=== PATIENT | female | born 1960 | race Caucasian/White ===

== ENCOUNTER → 2019-06-26 | Outpatient (CLI) | payer OTHER ==
[2019-06-26 08:09] LABS: ABSOLUTE EOSINOPHILS 0.1 thou/uL (0.0-0.7); ABSOLUTE LYMPHOCYTES 1.2 thou/uL (0.8-5.3); ABSOLUTE MONOCYTES 0.3 thou/uL (0.0-1.2); ABSOLUTE NEUTROPHILS 2.3 thou/uL (1.6-8.1); BASOPHILS 0.7 %; EOSINOPHILS 3.4 %; HEMATOCRIT 41.6 % (37.0-47.0); HEMOGLOBIN 14.3 gm/dL (12.0-15.0); LYMPHOCYTES 30.5 %; MCH 30.5 pg (26.0-34.0); MCHC 34.5 g/dL (28.0-37.0); MCV 88.6 fL (80.0-100.0); MONOCYTES 8.2 %; MPV 7.4 fl. (7.2-11.1); NUCLEATED RBCS 0 /100WBC; PLATELET COUNT* 194 thou/uL (150-400); POLYS 57.2 %; RBC 4.69 mil/uL (4.20-5.00); RDW-CV 13.6 % (10.5-14.5); WBC 4.1 thou/uL (4.0-11.0)
[2019-06-26 09:14] LABS: ALBUMIN 3.8 g/dL (3.4-5.0); ALKALINE PHOSPHATASE 72 U/L (46-116); ANION GAP 6 mmol/L (7-16); BUN 14 mg/dL (7-18); CHLORIDE 108 mmol/L (98-107); CHOLESTEROL 210 mg/dL (<200); CO2 28 mmol/L (21-32); CREATININE 0.6 mg/dL (0.6-1.3); GLUCOSE 93 mg/dL (70-99); HDL CHOLESTEROL 78 mg/dL (>40); LDL CHOLESTEROL 121 mg/dL (<100); POTASSIUM 4.3 mmol/L (3.5-5.1); SGOT 22 U/L (15-37); SGPT 32 U/L (30-65); SODIUM 142 mmol/L (136-145); TC:HDL 2.7 Ratio (Not establshd); TOTAL BILIRUBIN 0.3 mg/dL (<0.1-1.0); TOTAL PROTEIN 7.3 g/dL (6.4-8.2); TRIGLYCERIDE 55 mg/dL (<150); VLDL 11 mg/dL (<40)
[2019-06-26 09:15] LABS: SERUM ASSESSMENT Clear
== END ==
LOC: M.LAB 07:16
PROVIDERS: Family Medicine
DX: I10 Essential (primary) hypertension (principal); E55.9 Vitamin D deficiency, unspecified

== ENCOUNTER → 2020-08-27 | Outpatient (CLI) | payer OTHER ==
--- NOTE | 2020-08-27 12:18 | 2DMMODE ---
[place] [address] 2 D/M-MODE ECHOCARDIOGRAM Name: NIVIA LOPEZ Room: [facility]#: [id number] Admission: 08/27/20 Attend Phys: Jasper Lvoe, Discharge: Date of : 62 Date of Service: 08/27/20 1218 Report #: [id number] THIS REPORT FOR: cc: Estrellita Silver MD, Nora P. MD Holkins,Jesse Nguyen MD [facility] ~ APPROVED REPORT Study performed: 08/27/2020 08:06:59 EXAM: Comprehensive 2D, Doppler, and color-flow Echocardiogram / Bubble Study Patient Location: Out-Patient BSA: 1.86 HR: 75 bpm BP: 120/72 mmHg Other Information Study Quality: Good Indications CVA/TIA PFO? Echo Enhancing Agent Indication: Rule out Shunt Agent(s) / Amount(s) Used: Agitated Saline 10 cc 2D Dimensions IVSd: 11.30 (7-11mm) LVOT Diam: 19.60 (18-24mm) LVDd: 45.36 mm PWd: 10.55 (7-11mm) Ascending Ao: 29.37 (22-36mm) LVDs: 28.86 (25-40mm) Aortic Root: 28.03 mm Volumes Left Atrial Volume (Systole) LA ESV Index: 14.90 mL/m2 Aortic Valve AoV Peak Isauro.: 1.16 m/s AO Peak Gr.: 5.39 mmHg LVOT Max P.07 mmHg AO Mean Gr.: 2.63 mmHg LVOT Mean P.51 mmHg LVOT Max V: 0.88 m/[place] [address] 2 D/M-MODE ECHOCARDIOGRAM Name: NIVIA LOPEZ Room: [facility]#: [id number] Admission: 08/27/20 Attend Phys: Jasper Love, Discharge: Date of : 62 Date of Service: 08/27/20 1218 Report #: [id number] AO V2 VTI: 26.63 cm LVOT Mean V: 0.57 m/s GLADIS (VTI): 2.39 cm2 LVOT V1 VTI: 21.06 cm Mitral Valve E/A Ratio: 1.10 MV Decel. Time: 182.33 ms MV E Max Isauro.: 0.50 m/s MV PHT: 52.88 ms MVA (PHT): 4.16 cm2 TDI E/Lateral E': 3.85 E/Medial E': 7.14 Medial E' Isauro.: 0.07 m/s Lateral E' Isauro.: 0.13 m/s Pulmonary Valve PV Peak Isauro.: 0.82 m/s PV Peak Gr.: 2.68 mmHg Left Ventricle The left ventricle is normal size. There is normal LV segmental wall motion. There is normal left ventricular wall thickness. Left ventricular systolic function is normal. The left ventricular ejection fraction is within the normal range. LVEF is 55-60%. The left ventricular diastolic function is normal. Right Ventricle The right ventricle is normal size. The right ventricular systolic function is normal. Atria The left atrium size is normal. Injection of bubbles documented no interatrial shunt. The right atrium size is normal. Aortic Valve The aortic valve is normal in structure. No aortic regurgitation is present. There is no aortic valvular stenosis. Mitral Valve The mitral valve is normal in structure. There is no mitral valve regurgitation noted. No evidence of mitral valve stenosis. Tricuspid Valve The tricuspid valve is normal in structure. There is no tricuspid valve regurgitation noted[place] [address] 2 D/M-MODE ECHOCARDIOGRAM Name: JOHNNIVIA LANIER Room: [facility]#: [id number] Admission: 08/27/20 Attend Phys: Jasper Love, Discharge: Date of : 62 Date of Service: 08/27/20 1218 Report #: [id number] The pulmonary valve is normal in structure. There is no pulmonic valvular regurgitation. Great Vessels The aortic root is normal in size. IVC is normal in size and collapses >50% with inspiration. Pericardium There is no pericardial effusion. <Conclusion> The left ventricle is normal size. There is normal left ventricular wall thickness. Left ventricular systolic function is normal. The left ventricular ejection fraction is within the normal range. LVEF is 55-60%. The left ventricular diastolic function is normal. The right ventricle is normal size. The left atrium size is normal. The aortic valve is normal in structure. The mitral valve is normal in structure. The tricuspid valve is normal in structure. IVC is normal in size and collapses >50% with inspiration. There is no pericardial effusion. There is normal LV segmental wall motion. Injection of bubbles documented no interatrial shunt. <ELECTRONICALLY SIGNED> By: Jesse Nova MD, FACC 08/27/20 1218 17 Jesse Nova MD, FACC /INF
[2020-08-30 02:06] LABS: ANA INTERPRETATION Positive (Negative)
== END ==
LOC: M.CRD 08-26 09:00
PROVIDERS: ATTEND Psychiatry & Neurology Neuromuscular Medicine
DX: R93.89 Abnormal findings on diagnostic imaging of other specified body structures (principal); R41.3 Other amnesia; Z96.89 Presence of other specified functional implants

== ENCOUNTER → 2020-11-05 | Outpatient (CLI) | payer OTHER | LOC: M.RAD 15:56 | PROVIDERS: ATTEND Internal Medicine Rheumatology | DX: Z12.31 Encounter for screening mammogram for malignant neoplasm of breast (principal); M48.02 Spinal stenosis, cervical region; M25.78 Osteophyte, vertebrae; M79.642 Pain in left hand; M79.641 Pain in right hand; M19.072 Primary osteoarthritis, left ankle and foot; M19.071 Primary osteoarthritis, right ankle and foot ==